=== PATIENT | male | born 1940 | race Hispanic/Latino ===

== ENCOUNTER 2018-07-10 10:54 | Emergency (ER) | payer MEDICARE ==
[2018-07-10 10:55] VITALS: BMI 38.0
[2018-07-10 11:27] VITALS: RESP 18; TEMP 98.4
--- NOTE | 2018-07-10 11:51 | ED PDOC ---
Arrival/HPI - General Chief Complaint: Upper Extremity Problem/Injury Historian: Patient - History of Present Illness Narrative History of Present Illness (Text): 07/10/18 11:42 78 y/o male, nkda, c/o rt. arm pain and wrist swelling x 1 week with no fall or trauma. Aching pain, associated with swelling, no fever or chills, no night sweat, rt. wrist and hand pain, aggravated by movement, no numbness or tingling, no dizziness, no change in vision, no rash, no other medical or psychological complaints. Past Medical History - Provider Review Nursing Documentation Reviewed: Yes - Psychiatric Hx Substance Use: No Family/Social History - Physician Review Nursing Documentation Reviewed: Yes Family/Social History: Unknown Family HX Smoking Status: Unknown If Ever Smoked Hx Alcohol Use: Yes Frequency of alcohol use: Socially Hx Substance Use: No Allergies/Home Meds Allergies/Adverse Reactions: Allergies No Known Allergies Allergy (Verified 07/10/18 11:26) Review of Systems - Review of Systems Constitutional: absent: Fatigue, Fevers Eyes: absent: Vision Changes ENT: absent: Hearing Changes Respiratory: absent: SOB, Cough Cardiovascular: absent: Chest Pain Gastrointestinal: absent: Abdominal Pain, Diarrhea, Nausea, Vomiting Musculoskeletal: Arthralgias, Joint Swelling. absent: Back Pain, Neck Pain, Myalgias Skin: absent: Rash, Pruritis Neurological: absent: Headache, Dizziness Psychiatric: absent: Anxiety, Depression, Suicidal Ideation Physical Exam Vital Signs Reviewed: Yes Vital Signs Temp Pulse Resp BP Pulse Ox 07/10/18 11:24 98.4 F 81 18 137/82 99 Temperature: Afebrile Blood Pressure: Normal Pulse: Regular Respiratory Rate: Normal Appearance: Positive for: Well-Appearing, Non-Toxic, Comfortable Pain Distress: Moderate Mental Status: Positive for: Alert and Oriented X 3 - Systems Exam Head: Present: Atraumatic, Normocephalic Pupils: Present: PERRL Extroacular Muscles: Present: EOMI Conjunctiva: Present: Normal Mouth: Present: Moist Mucous Membranes Neck: Present: Normal Range of Motion Respiratory/Chest: Present: Clear to Auscultation, Good Air Exchange. No: Respiratory Distress, Accessory Muscle Use Cardiovascular: Present: Regular Rate and Rhythm, Normal S1, S2. No: Murmurs Abdomen: No: Tenderness, Distention, Peritoneal Signs Back: Present: Normal Inspection Upper Extremity: Present: Normal Inspection, Other (RUE: +ttp and swelling to the rt. wrist/hand region, no cellulitis or ulcers, FROM without limitation, sensation intact, motor 5/5, +radial pulse, neurovascular intact. ). No: Cyanosis, Edema Lower Extremity: Present: Normal Inspection. No: Edema Neurological: Present: GCS=15, CN II-XII Intact, Speech Normal Skin: Present: Warm, Dry, Normal Color. No: Rashes Psychiatric: Present: Alert, Oriented x 3, Normal Insight, Normal Concentration Medical Decision Making ED Course and Treatment: 07/10/18 11:55 -labs -rt. wrist xray -rt. hand xray -RUE Venuous doppler -Percocet -observe and reassess 07/10/18 14:19 -rt. wrist xray ER wet read: +DJD, no fracture or dislocation. -rt. hand xray ER wet read: +DJD, no fracture or dislocation. -RUE Venuous doppler: as per preliminary report, no acute DVT -Labs are non-significant -BNP with normal limit -Uric acid within normal limit -CPK within normal limit -Toradol 15 and decadron 8mg IV ordered. he feels much better, iona wrap applied, will discharge home. -Discharge home with celebrex, percocet for severe pain, iona wrap, follow up with your own pmd and orthopedic within 2 days, return to the ER for any new or worsening signs or symptoms. - RAD Interpretation Radiology Orders: RT. hand xray: PROCEDURE: Right Hand Radiographs. HISTORY: rt. hand pain x 1 week COMPARISON: None. TECHNIQUE: 3 views obtained. FINDINGS: BONES: Normal. No fracture. JOINTS: Mild degenerative changes in the DIP joints SOFT TISSUES: Normal. OTHER FINDINGS: None. IMPRESSION: No acute findings Rt. wrist xray: Date of service: 07/10/2018 PROCEDURE: Right Wrist Radiographs. HISTORY: rt. wrist pain x 1 week COMPARISON: None. TECHNIQUE: 3 views obtained. FINDINGS: BONES: Normal. No fracture. JOINTS: Normal. No dislocation. SOFT TISSUES: Normal. OTHER FINDINGS: None. IMPRESSION: Normal right wrist radiographs. RUE venuous doppler: as per preliminary report, no acute DVT PROCEDURE: Right upper extremity venous US CLINICAL HISTORY: Arm pain and swelling Evaluate for deep venous thrombosis. PHYSICIAN(S): Leandro Escobar M.D FINDINGS: The visualized rightinternal jugular vein is sonographically normal and compressible. No evidence of obstruction or thrombus is seen. The visualized segments of the right subclavian vein are patent with normal waveforms. No sonographic evidence of obstruction or thrombosis is seen. The visualized deep venous system of the proximal right upper extremity is sonographically normal and compressible. IMPRESSION: 1. No sonographic evidence for deep venous thrombosis in the visualized segments of the right upper extremity. Sales Promotion Coordinator: Radiologist - PA / MACHINIST BENCH / Resident Statement / has reviewed & agrees with the documentation as recorded. Disposition/Present on Arrival - Present on Arrival Any Indicators Present on Arrival: No History of DVT/PE: No History of Uncontrolled Diabetes: No Urinary Catheter: No History of Decub. Ulcer: No History Surgical Site Infection Following: None - Disposition Have Diagnosis and Disposition been Completed?: Yes Diagnosis: Arthralgia, Arthritis Disposition: HOME/ ROUTINE Disposition Time: 11:56 Patient Plan: Discharge Condition: IMPROVED Additional Instructions: -Discharge home with celebrex, percocet for severe pain, iona wrap, follow up with your own pmd and orthopedic within 2 days, return to the ER for any new or worsening signs or symptoms. Prescriptions: Acetaminophen/Oxycodone Hydr [Oxycodone and Acetaminophen 325 mg-2.5 mg] 1 tab PO TID PRN #12 tab PRN Reason: Other Celecoxib [CeleBREX] 200 mg PO DAILY PRN #14 cap PRN Reason: Other Referrals: Mutterperl,Akbar, MD [Primary Care Provider] - Follow up with primary Forms: [employer] (Chinese)
[2018-07-10] MEDS ORDERED: Oxycodone/Acetaminophen 5/325 mg Tab PO STA (11:55)
[2018-07-10 12:27] LABS: BASO # 0.01 K/mm3 (0.0-2.0); BASO % 0.1 % (0.0-3.0); EOS # 0.2 (0.0-0.7); EOS % 3.1 % (1.5-5.0); HEMOGLOBIN 13.9 g/dL (14.0-18.0); LYMPH # 1.1 (1.2-3.4); MEAN CELL VOLUME 98.6 fl (80.0-105.0); MEAN CORPUSCULAR HEMOGLOBIN 32.7 pg (25.0-35.0); MEAN CORPUSCULAR HGB CONC 33.2 g/dl (31.0-37.0); MEAN PLATELET VOLUME 9.2 fl (7.0-11.0); MONO # 0.5 (0.1-0.6); MONO % 6.5 % (1.0-6.0); RBC 4.25 10^6/uL (3.5-6.1); RED CELL DISTRIBUTION WIDTH 13.7 % (11.5-14.5); WHITE BLOOD COUNT 7.1 10^3/uL (4.5-11.0)
[2018-07-10 12:37] LABS: ALB/GLOB RATIO 1.1 (1.1-1.8); ALBUMIN 3.7 g/dL (3.0-4.8); ALT/SGPT 33 U/L (7-56); AST/SGOT 27 U/L (17-59); BLOOD UREA NITROGEN 19 mg/dL (7-21); CALCIUM 9.1 mg/dL (8.4-10.5); GFR NON-AFRICAN AMERICAN > 60; INR 1.09; PARTIAL THROMBOPLASTIN TIME 32.5 Seconds (26.9-38.3); PROTHROMBIN TIME 12.3 SECONDS (9.4-12.5); URIC ACID 5.1 mg/dL (3.5-8.5)
--- NOTE | 2018-07-10 13:59 | US ---
PROCEDURE: Right upper extremity venous US CLINICAL HISTORY: Arm pain and swelling Evaluate for deep venous thrombosis. PHYSICIAN(S): Leandro Escobar M.D FINDINGS: The visualized rightinternal jugular vein is sonographically normal and compressible. No evidence of obstruction or thrombus is seen. The visualized segments of the right subclavian vein are patent with normal waveforms. No sonographic evidence of obstruction or thrombosis is seen. The visualized deep venous system of the proximal right upper extremity is sonographically normal and compressible. IMPRESSION: 1. No sonographic evidence for deep venous thrombosis in the visualized segments of the right upper extremity.
[2018-07-10] MEDS ORDERED: Dexamethasone 4 mg/1 ml IVP STA (14:18)
[2018-07-10 15:08] VITALS: BP 128/80; PULSE 76; O2SAT 100
--- NOTE | 2018-07-10 15:24 | RAD ---
PROCEDURE: Right Hand Radiographs. HISTORY: rt. hand pain x 1 week COMPARISON: None. TECHNIQUE: 3 views obtained. FINDINGS: BONES: Normal. No fracture. JOINTS: Mild degenerative changes in the DIP joints SOFT TISSUES: Normal. OTHER FINDINGS: None. IMPRESSION: No acute findings
--- NOTE | 2018-07-10 15:27 | RAD ---
Date of service: 07/10/2018 PROCEDURE: Right Wrist Radiographs. HISTORY: rt. wrist pain x 1 week COMPARISON: None. TECHNIQUE: 3 views obtained. FINDINGS: BONES: Normal. No fracture. JOINTS: Normal. No dislocation. SOFT TISSUES: Normal. OTHER FINDINGS: None. IMPRESSION: Normal right wrist radiographs.
== END 2018-07-10 15:08 | disposition home or self-care (01) ==
LOC: ED 10:54
DX: M25.50 Pain in unspecified joint (principal); M19.90 Unspecified osteoarthritis, unspecified site
CPT/HCPCS: 73110; 73130; 80053; 82550; 83880; 84550; 85025; 85610; 85730; 93971; 96374; 96375; 99284; J1100; J1885